=== PATIENT | female | born 1985 | race Caucasian/White ===

== ENCOUNTER 2022-10-24 12:40 | Emergency (ER) | payer OTHER ==
[~2022-10-24] VITALS: Ht 162.6 cm; Wt 83.0 kg
[2022-10-24] MEDS ORDERED: TUSSIN100 MG/51 PO (17:27)
[2022-10-24] MEDS ORDERED: DUI500 PO (17:27)
== END 2022-10-24 18:00 | disposition home or self-care (01) ==
LOC: ER 12:40
DX: R10.2 Pelvic and perineal pain (principal); N39.0 Urinary tract infection, site not specified; Z20.822 Contact with and (suspected) exposure to COVID-19

== ENCOUNTER 2023-04-26 14:55 | Inpatient (IN) | payer OTHER ==
[~2023-04-26] VITALS: Ht 162.6 cm; Wt 1.8 kg
[~2023-04-26 14:55] MED LIST: DUI500 PO; TUSSIN100 MG/51 PO
[2023-04-26 16:03] LABS: HEMATOCRIT 34.3 % (36.0-45.00); HEMOGLOBIN 11.6 g/dL (12.0-15.00); MEAN CORPUSCULAR HEMOGLOBIN 29.1 pg (27.00-32.0); MEAN CORPUSCULAR HGB CONC 33.9 g/dl (32.0-36.0); PLATELET COUNT 200 K/uL (150-450); RED BLOOD COUNT 3.99 M/uL (4.00-6.00); RED CELL DISTRIBUTION WIDTH 14.7 % (11.5-14.5)
[2023-04-26 16:22] LABS: INR < 0.93; PARTIAL THROMBOPLASTIN TIME 29.5 SECONDS (22.0-34.0); PROTHROMBIN TIME 9.7 SECONDS (9.0-11.5)
[2023-04-26 16:59] LABS: ALBUMIN 2.7 gm/dL (3.4-5.0); BILIRUBIN TOTAL 0.25 mg/dL (0.3-1.2); CALCIUM 8.4 mg/dL (8.5-10.1); CREATININE SERUM 0.96 mg/dL (0.55-1.02); GFR 65.4; GLOBULINA 3.2 G/DL (2.4-3.5); POTASSIUM 4.14 mEq/L (3.5-5.1); TOTAL PROTEIN 5.9 gm/dL (6.4-8.2)
[2023-04-26] MEDS ORDERED: PRENATABS RX T1 EACH PO (17:19)
[2023-04-26 20:09] LABS: ABG PH 7.297 (7.35-7.45); ABG PO2 24.1 mmHg (80-100); ABG pCO2 46.7 mmHg (35-45); SaO2 34.5 %
[2023-04-26 20:10] LABS: BASE EXCESS -4.3 mmol/l; BICARBONATE 22.3 mmol/l (23-25); Tco2 23.8 mmol/l; o2 21 %
[2023-04-27 16:28] LABS: HEMATOCRIT 33.6 % (36.0-45.00); HEMOGLOBIN 11.4 g/dL (12.0-15.00); MEAN CELL VOLUME 85.8 fL (80.00-100.00); MEAN CORPUSCULAR HEMOGLOBIN 29.1 pg (27.00-32.0); MEAN CORPUSCULAR HGB CONC 33.9 g/dl (32.0-36.0); PLATELET COUNT 206 K/uL (150-450); RED BLOOD COUNT 3.92 M/uL (4.00-6.00); RED CELL DISTRIBUTION WIDTH 14.6 % (11.5-14.5)
[2023-04-29] MEDS ORDERED: OXYC1TAB9 PO (08:53)
[2023-04-29] MEDS ORDERED: KETO10TA2 PO (08:53)
[2023-04-29] MEDS ORDERED: LABETALOL HCL200 MG PO (08:53)
[2023-04-29 15:21] LABS: HEMATOCRIT 30.5 % (36.0-45.00); HEMOGLOBIN 10.3 g/dL (12.0-15.00); MEAN CELL VOLUME 86.6 fL (80.00-100.00); MEAN CORPUSCULAR HEMOGLOBIN 29.2 pg (27.00-32.0); MEAN CORPUSCULAR HGB CONC 33.8 g/dl (32.0-36.0); PLATELET COUNT 232 K/uL (150-450); RED BLOOD COUNT 3.52 M/uL (4.00-6.00); RED CELL DISTRIBUTION WIDTH 14.9 % (11.5-14.5)
== END 2023-04-30 19:13 | disposition home or self-care (01) | DRG 788 ==
LOC: OB/GYN 14:55 → LDR 14:55 → OB/GYN 22:29
PROVIDERS: Obstetrics & Gynecology Maternal & Fetal Medicine; ADMIT Obstetrics & Gynecology Gynecology; ATTEND Obstetrics & Gynecology Gynecology
PROC: 4A1HXCZ Monitoring of Products of Conception, Cardiac Rate, External Approach (ICD-10-PCS; 2023-04-26)
PROC: 10D00Z1 Extraction of Products of Conception, Low, Open Approach (ICD-10-PCS; principal; 2023-04-26 17:30)
DX: O41.03X0 Oligohydramnios, third trimester, not applicable or unspecified (principal); O36.5930 Maternal care for other known or suspected poor fetal growth, third trimester, not applicable or unspecified; Z3A.37 37 weeks gestation of pregnancy; Z37.0 Single live birth; Z20.822 Contact with and (suspected) exposure to COVID-19

== ENCOUNTER 2023-05-03 05:59 | Emergency (ER) | payer OTHER ==
[~2023-05-03] VITALS: Ht 162.6 cm; Wt 94.8 kg
[~2023-05-03 05:59] MED LIST changes: +KETO10TA2 PO; +LABETALOL HCL200 MG PO; +OXYC1TAB9 PO; +PRENATABS RX T1 EACH PO
[2023-05-03] MEDS ORDERED: NIFEDIPINE20 MG PO (06:18)
[2023-05-03 08:12] LABS: HEMOGLOBIN 11.1 g/dL (12.0-15.00); MEAN CELL VOLUME 85.3 fL (80.00-100.00); MEAN CORPUSCULAR HEMOGLOBIN 28.6 pg (27.00-32.0); MEAN CORPUSCULAR HGB CONC 33.6 g/dl (32.0-36.0); PLATELET COUNT 313 K/uL (150-450); RED BLOOD COUNT 3.86 M/uL (4.00-6.00); RED CELL DISTRIBUTION WIDTH 15.6 % (11.5-14.5)
[2023-05-03 08:31] LABS: ALBUMIN 2.9 gm/dL (3.4-5.0); BILIRUBIN TOTAL 0.41 mg/dL (0.3-1.2); CALCIUM 8.8 mg/dL (8.5-10.1); CREATININE SERUM 0.9 mg/dL (0.55-1.02); GFR 70.45; POTASSIUM 4.1 mEq/L (3.5-5.1); TOTAL PROTEIN 6.9 gm/dL (6.4-8.2)
[2023-05-03 09:07] LABS: URINE APPEARANCE Clear; URINE BILIRRUBIN Negative (NEGATIVE); URINE BLOOD Negative; URINE COLOR Yellow; URINE GLUCOSE Negative (NEGATIVE); URINE LEUKOCYTE Negative; URINE NITRATE Negative; URINE PROTEIN Negative (NEGATIVE); URINE UROBILINOGEN 0.2 E.U./dl
[2023-05-03 09:16] LABS: URINE BACTERIA 157.4 uL (0.0-1933); URINE EPITHELIAL CELLS 2.3 uL (0.0-38.8)
[2023-05-03 09:33] LABS: URINE RBC 1.4 uL (0.0-20.8); URINE WBC 1.6 uL (0.0-23.2)
[2023-05-04] MEDS ORDERED: FUROSEMIDE20 MG (10:02)
== END 2023-05-03 10:13 | disposition home or self-care (01) ==
LOC: ER 05:59
DX: O13.5 Gestational [pregnancy-induced] hypertension without significant proteinuria, complicating the puerperium (principal); R56.9 Unspecified convulsions

== ENCOUNTER 2023-05-03 17:30 | Inpatient (IN) | payer OTHER ==
[~2023-05-03] VITALS: Ht 162.6 cm; Wt 94.8 kg
[~2023-05-03 17:30] MED LIST changes: +NIFEDIPINE20 MG PO
[2023-05-03 19:47] LABS: URINE APPEARANCE Clear; URINE BILIRRUBIN Negative (NEGATIVE); URINE BLOOD Small; URINE COLOR Yellow; URINE GLUCOSE Negative (NEGATIVE); URINE LEUKOCYTE Trace; URINE NITRATE Negative; URINE PROTEIN Negative (NEGATIVE); URINE UROBILINOGEN 0.2 E.U./dl
[2023-05-03 19:51] LABS: URINE BACTERIA 395.3 uL (0.0-1933); URINE EPITHELIAL CELLS 7.7 uL (0.0-38.8); URINE WBC 9.1 uL (0.0-23.2)
[2023-05-03 19:52] LABS: HEMATOCRIT 33.6 % (36.0-45.00); HEMOGLOBIN 11.3 g/dL (12.0-15.00); MEAN CELL VOLUME 86.8 fL (80.00-100.00); MEAN CORPUSCULAR HEMOGLOBIN 29.1 pg (27.00-32.0); MEAN CORPUSCULAR HGB CONC 33.6 g/dl (32.0-36.0); PLATELET COUNT 332 K/uL (150-450); RED BLOOD COUNT 3.87 M/uL (4.00-6.00); RED CELL DISTRIBUTION WIDTH 15.4 % (11.5-14.5)
[2023-05-03 20:03] LABS: URINE RBC 1.8 uL (0.0-20.8)
[2023-05-03 20:09] LABS: INR 0.97; PARTIAL THROMBOPLASTIN TIME 23.1 SECONDS (22.0-34.0); PROTHROMBIN TIME 10.2 SECONDS (9.0-11.5)
[2023-05-03 20:17] LABS: ALBUMIN 3.1 gm/dL (3.4-5.0); BILIRUBIN TOTAL 0.43 mg/dL (0.3-1.2); CALCIUM 8.8 mg/dL (8.5-10.1); CREATININE SERUM 0.87 mg/dL (0.55-1.02); GFR 73.26; GLOBULINA 3.4 G/DL (2.4-3.5); POTASSIUM 4.2 mEq/L (3.5-5.1); TOTAL PROTEIN 6.5 gm/dL (6.4-8.2)
[2023-05-04 03:31] LABS: HEMATOCRIT 34.8 % (36.0-45.00); HEMOGLOBIN 11.6 g/dL (12.0-15.00); MEAN CELL VOLUME 86.7 fL (80.00-100.00); MEAN CORPUSCULAR HEMOGLOBIN 28.9 pg (27.00-32.0); MEAN CORPUSCULAR HGB CONC 33.4 g/dl (32.0-36.0); PLATELET COUNT 373 K/uL (150-450); RED BLOOD COUNT 4.02 M/uL (4.00-6.00); RED CELL DISTRIBUTION WIDTH 15.1 % (11.5-14.5)
[2023-05-04 03:55] LABS: ALBUMIN 3.1 gm/dL (3.4-5.0); BILIRUBIN TOTAL 0.31 mg/dL (0.3-1.2); CALCIUM 8.5 mg/dL (8.5-10.1); CREATININE SERUM 0.94 mg/dL (0.55-1.02); GLOBULINA 3.5 G/DL (2.4-3.5); POTASSIUM 3.96 mEq/L (3.5-5.1); TOTAL PROTEIN 6.6 gm/dL (6.4-8.2)
[2023-05-04] MEDS ORDERED: FUROSEMIDE20 MG (10:02)
[2023-05-05] MEDS ORDERED: TRANDATE300 MG PO ×2 (07:56)
== END 2023-05-05 11:16 | disposition home or self-care (01) | DRG 776 ==
LOC: LDR 17:30 → OB/GYN 05-04 11:47
PROVIDERS: Obstetrics & Gynecology Gynecology; ADMIT Obstetrics & Gynecology Maternal & Fetal Medicine; ATTEND Obstetrics & Gynecology Maternal & Fetal Medicine
PROC: B030ZZZ Magnetic Resonance Imaging (MRI) of Brain (ICD-10-PCS; principal; 2023-05-04)
DX: O15.2 Eclampsia complicating the puerperium (principal); O14.05 Mild to moderate pre-eclampsia, complicating the puerperium; Z20.822 Contact with and (suspected) exposure to COVID-19
CPT/HCPCS: 70544